=== PATIENT | female | born 1990 | race African-American/Black ===

== ENCOUNTER 2023-02-02 12:49 | Emergency (ER) | payer SELFPAY ==
[~2023-02-02] VITALS: Ht 167.6 cm; Wt 82.0 kg
[2023-02-02] MEDS ORDERED: TOPUD PO (15:03)
[2023-02-02] MEDS ORDERED: LIDO700A15 TP (15:03)
[2023-02-02] MEDS ORDERED: IBUP-2028 MT (15:03)
[2023-02-02 15:30] VITALS: BP 108/88
== END 2023-02-02 15:40 | disposition home or self-care (01) ==
LOC: ER 12:49
DX: Z00.00 Encounter for general adult medical examination without abnormal findings (principal)
CPT/HCPCS: 99283